=== PATIENT | male | born 1930 | race Caucasian/White ===

== ENCOUNTER 2017-12-23 13:25 | Inpatient (IN) | payer OTHER ==
[~2017-12-23] VITALS: Ht 177.8 cm; Wt 72.2 kg
[~2017-12-23 13:25] MED LIST: ASPIRIN81 M2 PO; Aspirin E.C. PO; CRESTOR5 MG PO; Cardizem CD,Cartia X PO; Coumadin,Jantoven PO; DIGOX125 MCG PO; DIOVAN160 MG PO; DIOVAN320 MG PO; DOVONEX 0.005%60 GM TP; GLUTOFAC1 EACH PO; LASIX40 MG PO; LOPRESSOR50 MG PO; Lanoxin,Digitek PO; Levothroid,Synthroid PO; Lovenox SC; Nitrostat,NitroQuick SL; Oscal 500 w/Vitamin PO; Percocet 5/325,Endoc PO; SYNTHROID75 MCG PO; THERAGRAN1 TABLET PO; Tylenol Regular Stre PO; VITAMIN D-3 401 EACH PO; VITAMIN D1000 INTUN PO; Vitamin B Complex PO; [UNRECOGNIZED DRUG - OTHER] PO
[2017-12-23 14:23] LABS: HEMATOCRIT 38.9 % (38.0-50.0); HEMOGLOBIN 13.4 G/DL (12.5-16.6); MCH 32.8 PG (29.0-34.0); MCHC 34.4 G/DL (30.0-36.0); MCV 95.1 FL (86-99); PLATELET COUNT 153 K/uL (156-360); RBC DIS.WIDTH-CV 12.4 % (11.8-14.6); RBC DIS.WIDTH-SD 43.4 % (39-53); RED BLOOD COUNT 4.09 M/uL (4.00-5.50); WHITE BLOOD COUNT 8.2 K/uL (4.1-10.2)
[2017-12-23 14:31] LABS: CHLORIDE 106 mEq/L (99-109); POTASSIUM 4.1 mEq/L (3.7-5.4); SODIUM 141 mEq/L (136-147)
[2017-12-23 14:33] LABS: GLUCOSE 93 mg/dL (70-99)
[2017-12-23 14:37] LABS: CREATININE 1.1 mg/dL (0.6-1.3); GFR ESTIMATE (CALCULATED) > 59 mL/min/ (58.99-99999)
[2017-12-23 14:38] LABS: UREA NITROGEN (BUN) 15 mg/dL (9-23)
[2017-12-23 15:12] LABS: TROP-I INTERPRETATION NEGATIVE; TROPONIN-I < 0.01 ng/mL (0.0-0.30)
[2017-12-23] MEDS ORDERED: B-COMPLEX-VITA1 EACH PO (15:23)
[2017-12-23] MEDS ORDERED: PEPCID40 MG PO (15:23)
[2017-12-23] MEDS ORDERED: KENALOG,ARISTOC15 GM TP (15:24)
[2017-12-23] MEDS ORDERED: ARTIFICIAL TEAR15 M1 BOTH EYES (15:24)
[2017-12-23 17:42] VITALS: BP 159/90
[2017-12-24] VITALS (7 sets, daily range): BP systolic 100–145; BP diastolic 60–75
[2017-12-24 05:56] LABS: HEMATOCRIT 42.3 % (38.0-50.0); HEMOGLOBIN 14.3 G/DL (12.5-16.6); MCH 31.4 PG (29.0-34.0); MCHC 33.8 G/DL (30.0-36.0); PLATELET COUNT 168 K/uL (156-360); RBC DIS.WIDTH-CV 12.3 % (11.8-14.6); RBC DIS.WIDTH-SD 42.2 % (39-53); RED BLOOD COUNT 4.55 M/uL (4.00-5.50); WHITE BLOOD COUNT 8.6 K/uL (4.1-10.2)
[2017-12-24 06:42] LABS: CHLORIDE 99 MEQ/L (99-109); CREATININE 1.3 MG/DL (0.6-1.3); GFR ESTIMATE (CALCULATED) 55 mL/min/ (58.99-99999); GLUCOSE 92 mg/dL (70-99); POTASSIUM 3.6 MEQ/L (3.7-5.4); SODIUM 143 MEQ/L (136-147); TROP-I INTERPRETATION NEGATIVE; TROPONIN-I < 0.01 ng/mL (0.0-0.30); UREA NITROGEN (BUN) 15 mg/dL (9-23)
[2017-12-24 13:11] LABS: ALBUMIN 3.7 G/DL (3.2-4.8); DIRECT BILIRUBIN 0.4 mg/dL (0.0-0.3); TOTAL BILIRUBIN 1.2 MG/DL (0.0-1.0)
[2017-12-24 13:16] LABS: ALKALINE PHOSPHATASE 69 IU/L (3-129); ALT (GPT) 9 IU/L (3-49); AST (GOT) 22 IU/L (2-34); TOTAL PROTEIN 6.6 G/DL (6.4-8.3)
[2017-12-25 04:21] VITALS: BP 125/67
[2017-12-25 04:22] VITALS: BP 138/76
[2017-12-25 08:35] VITALS: BP 137/70
[2017-12-25 11:53] VITALS: BP 96/52
[2017-12-25 15:18] LABS: BASOPHIL (%) 0.3 % (0-1); EOSINOPHIL (%) 7.9 % (0-5); EOSINOPHIL COUNT 0.7 K/uL (0-0.3); HEMATOCRIT 40.5 % (38.0-50.0); HEMOGLOBIN 13.9 G/DL (12.5-16.6); IMMATURE GRANULOCYTE (%) 0.2 % (0.0-0.7); LYMPHOCYTE (%) 14.3 % (15-42); LYMPHOCYTE COUNT 1.3 K/uL (1.0-2.8); MCH 32.1 PG (29.0-34.0); MCHC 34.3 G/DL (30.0-36.0); MCV 93.5 FL (86-99); MONOCYTE (%) 9.1 % (3-12); MONOCYTE COUNT 0.8 K/uL (0-0.8); NEUTROPHIL (%) 68.2 % (45-76); PLATELET COUNT 185 K/uL (156-360); RBC DIS.WIDTH-CV 12.3 % (11.8-14.6); RBC DIS.WIDTH-SD 42.7 % (39-53); RED BLOOD COUNT 4.33 M/uL (4.00-5.50); WHITE BLOOD COUNT 8.8 K/uL (4.1-10.2)
[2017-12-25 15:41] LABS: CHLORIDE 98 MEQ/L (99-109); CREATININE 1.6 MG/DL (0.6-1.3); GFR ESTIMATE (CALCULATED) 43 mL/min/ (58.99-99999); GLUCOSE 78 mg/dL (70-99); MAGNESIUM 1.6 mg/dl (1.3-2.7); POTASSIUM 3.4 MEQ/L (3.7-5.4); SODIUM 138 MEQ/L (136-147)
[2017-12-25 15:48] LABS: UREA NITROGEN (BUN) 23 mg/dL (9-23)
[2017-12-25 15:56] VITALS: BP 124/66
[2017-12-25 20:00] VITALS: BP 133/68
[2017-12-26] VITALS: BP 124/63
[2017-12-26 04:00] VITALS: BP 140/66
[2017-12-26 06:13] LABS: BASOPHIL (%) 0.2 % (0-1); EOSINOPHIL (%) 7.6 % (0-5); EOSINOPHIL COUNT 0.7 K/uL (0-0.3); HEMATOCRIT 38.4 % (38.0-50.0); HEMOGLOBIN 13.3 G/DL (12.5-16.6); IMMATURE GRANULOCYTE (%) 0.2 % (0.0-0.7); LYMPHOCYTE (%) 13.5 % (15-42); LYMPHOCYTE COUNT 1.2 K/uL (1.0-2.8); MCH 31.9 PG (29.0-34.0); MCHC 34.6 G/DL (30.0-36.0); MCV 92.1 FL (86-99); MONOCYTE (%) 9.4 % (3-12); MONOCYTE COUNT 0.8 K/uL (0-0.8); NEUTROPHIL (%) 69.1 % (45-76); PLATELET COUNT 178 K/uL (156-360); RBC DIS.WIDTH-CV 12.1 % (11.8-14.6); RBC DIS.WIDTH-SD 41.1 % (39-53); RED BLOOD COUNT 4.17 M/uL (4.00-5.50); WHITE BLOOD COUNT 8.7 K/uL (4.1-10.2)
[2017-12-26 06:41] LABS: CHLORIDE 98 MEQ/L (99-109); CREATININE 1.5 MG/DL (0.6-1.3); GFR ESTIMATE (CALCULATED) 47 mL/min/ (58.99-99999); GLUCOSE 85 mg/dL (70-99); MAGNESIUM 1.5 mg/dl (1.3-2.7); SODIUM 140 MEQ/L (136-147); UREA NITROGEN (BUN) 22 mg/dL (9-23)
[2017-12-26 06:44] LABS: POTASSIUM 4.2 MEQ/L (3.7-5.4)
[2017-12-26 08:58] VITALS: BP 128/66
[2017-12-26] MEDS ORDERED: ENALAPRIL MALEAT5 MG PO (09:31)
== END 2017-12-26 16:06 | disposition home or self-care (01) | DRG 292 ==
LOC: EME 13:25 → 5SOUTH 16:17 → EDOF 16:17 → ENRESERV 16:18 → 5SOUTH 17:30
PROVIDERS: Internal Medicine; Internal Medicine Cardiovascular Disease; Physician Assistant
DX: I50.23 Acute on chronic systolic (congestive) heart failure (principal); I13.0 Hypertensive heart and chronic kidney disease with heart failure and stage 1 through stage 4 chronic kidney disease, or unspecified chronic kidney disease; I48.1 Persistent atrial fibrillation; J90 Pleural effusion, not elsewhere classified; R29.6 Repeated falls; N18.3 Chronic kidney disease, stage 3 (moderate); E03.9 Hypothyroidism, unspecified; E78.5 Hyperlipidemia, unspecified; I25.10 Atherosclerotic heart disease of native coronary artery without angina pectoris; I48.2 Chronic atrial fibrillation; J44.9 Chronic obstructive pulmonary disease, unspecified; L40.9 Psoriasis, unspecified; R53.1 Weakness; R63.0 Anorexia; R63.4 Abnormal weight loss; H91.93 Unspecified hearing loss, bilateral; Z79.82 Long term (current) use of aspirin; Z86.711 Personal history of pulmonary embolism; Z86.718 Personal history of other venous thrombosis and embolism; Z87.891 Personal history of nicotine dependence; Z91.81 History of falling; Z95.0 Presence of cardiac pacemaker; Z68.22 Body mass index [BMI] 22.0-22.9, adult; Z88.6 Allergy status to analgesic agent; S81.821S Laceration with foreign body, right lower leg, sequela; Z91.19 Patient's noncompliance with other medical treatment and regimen; Z82.49 Family history of ischemic heart disease and other diseases of the circulatory system
CPT/HCPCS: 70450; 71045; 71046; 78582; 80048; 80076; 83735; 83880; 84484; 85025; 85027; 85379; 92507 GN; 92523 GN; 93005; 93306; 97530 GO; 99281; 99285; A9540; A9567; J1650; J1940